=== PATIENT | male | born 1995 ===

== ENCOUNTER 2018-07-19 14:58 | Emergency (ER) | payer SELFPAY ==
--- NOTE | 2018-07-19 15:06 | UC ---
Hand/Wrist HPI - HPI Summary HPI Summary: 23 yo male presents with RIGHT hand injury. He tells me that this morning around 1000 at work he was using a drill and the drill locked and forcefully twisted his right hand. He had immediate pain, but still had good ROM so he continued working until his visit to the this afternoon. Currently he has moderate pain and swelling, but has good ROM. He has not taken anything for pain. Denies numbness or tingling. - History Of Current Complaint Stated Complaint: WRIST INJURY Time Seen by Provider: 07/19/18 15:06 Hx Obtained From: Patient Onset/Duration: Sudden Onset Severity Initially: Moderate Severity Currently: Moderate Pain Intensity: 6 Pain Scale Used: 0-10 Numeric - Allergies/Home Medications Allergies/Adverse Reactions: Allergies Allergy/AdvReac Type Severity Reaction Status Date / Time No Known Allergies Allergy Verified 07/19/18 15:09 Home Medications: Home Medications NK [No Home Medications Reported] 07/19/18 [History Confirmed 07/19/18] PMH/Surg Hx/FS Hx/Imm Hx - Additional Past Medical History Additional PMH: None - Surgical History Surgical History: None - Family History Known Family History: Positive: None - Social History Occupation: Employed Full-time Lives: Alone Alcohol Use: Occasionally Substance Use Type: None Smoking Status (MU): Current Every Day Smoker Have You Smoked in the Last Year: Yes Review of Systems Constitutional: Negative Skin: Negative Respiratory: Negative Cardiovascular: Negative Neurovascular: Negative Musculoskeletal: Other: - Right hand pain Neurological: Negative Psychological: Negative All Other Systems Reviewed And Are Negative: Yes Physical Exam - Summary Physical Exam Summary: GENERAL: NAD. WDWN. No pain distress. SKIN: No rashes, sores, lesions, or open wounds. CHEST: No accessory muscle use. Breathing comfortably and in no distress. CV: Pulses intact radial and ulnar. Cap refill <2seconds MSK: RIGHT HAND: Moderate TTP overlying 4th and 5th MC. FROM with pain during wet process miller head/flexion. NTTP right wrist. Moderate edema on dorsal aspect. NEURO: Alert. Sensations intact hand and all fingers. PSYCH: Age appropriate behavior. Triage Information Reviewed: Yes Vital Signs: Vital Signs: Temp Pulse Resp BP Pulse Ox 99.1 F 76 18 147/58 100 07/19/18 15:07 07/19/18 15:07 07/19/18 15:07 07/19/18 15:07 07/19/18 15:07 Vital Signs Reviewed: Yes Procedures - Splinting Right Upper Extremity Hand-Made Type: orthoglass Splint: ulnar gutter Pre-Proc Neuro Vasc Exam: normal Post-Proc Neuro Vasc Exam: normal Hand/Wrist Course/Dx - Course Course Of Treatment: XR: IMPRESSION: OBLIQUE NONDISPLACED FRACTURE OF THE FOURTH METACARPAL. Pt was placed in an ulnar gutter splint. Advised to elevate and rest. May take ibuprofen for pain. Out of work and f/u with Orthopedics and Occ Med for further evaluation and treatment. - Differential Dx/Diagnosis Provider Diagnoses: OBLIQUE NONDISPLACED FRACTURE OF THE FOURTH METACARPAL. Discharge - Sign-Out/Discharge Documenting (check all that apply): Patient Departure All imaging exams completed and their final reports reviewed: Yes - Discharge Plan Condition: Stable Disposition: HOME Patient Education Materials: Hand Fracture (ED) Forms: *Gen. Provider Communication, *Work Release Referrals: No Primary Care Phys,NOPCP [Primary Care Provider] - Per Nguyen MD [Medical Doctor] - Ashwin Millan MD [Medical Doctor] - Additional Instructions: If you develop a fever, shortness of breath, chest pain, new or worsening symptoms - please call your PCP or go to the ED. Your blood pressure was high at todays visit. Please see your primary provider within 4 weeks for recheck and re-evaluation. 1) Keep your splint clean, dry, and intact 2) May take ibuprofen 600mg every 6-8hours as needed for pain 3) Please call Dr. Nguyen of Occupational Medicine at the number below to schedule a follow up appointment regarding your work status 4) Please call Dr. Millan at the number below to schedule a follow up appointment for Orthopedics to further evaluate your hand fracture - Billing Disposition and Condition Condition: STABLE Disposition: Home
[2018-07-19] MEDS ORDERED: Ibuprofen TAB* 600 MG PO ONE (15:32)
--- NOTE | 2018-07-19 15:32 | RAD ---
HISTORY: Pain 5th [place]. Twist injury COMPARISONS: None VIEWS: 4 , Frontal, lateral, and oblique views of the right hand FINDINGS: BONE DENSITY: Normal. BONES: There is an oblique nondisplaced fracture of the fourth metacarpal. JOINTS: There is no arthropathy. ALIGNMENT: There is no dislocation. SOFT TISSUES: Unremarkable. OTHER FINDINGS: None. IMPRESSION: OBLIQUE NONDISPLACED FRACTURE OF THE FOURTH METACARPAL.
== END 2018-07-19 15:45 | disposition home or self-care (01) ==
LOC: UCEAST 14:58
DX: S62.304A Unspecified fracture of fourth metacarpal bone, right hand, initial encounter for closed fracture (principal); X50.1XXA Overexertion from prolonged static or awkward postures, initial encounter; Y93.89 Activity, other specified; Y92.9 Unspecified place or not applicable; Y99.0 Civilian activity done for income or pay; F17.200 Nicotine dependence, unspecified, uncomplicated
CPT/HCPCS: 26600; 26755; 99201; A9270-GY; G0463